=== PATIENT | male | born 1990 | race Two or more races ===

== ENCOUNTER 2022-04-02 04:20 | Emergency (ER) | payer MEDICAID ==
[~2022-04-02] VITALS: Ht 182.9 cm; Wt 55.0 kg
[2022-04-02 04:53] VITALS: BP 131/80
[2022-04-02] MEDS ORDERED: LORazepam 2MG/ML-1ML VIAL ONE (11:23)
[2022-04-02] MEDS ORDERED: ACET1CAP14 PO (23:50)
== END 2022-04-02 07:03 | disposition left against medical advice (07) ==
LOC: ER 04:20 → EDBD 04:20 → ER 07:03
DX: S86.911A Strain of unspecified muscle(s) and tendon(s) at lower leg level, right leg, initial encounter (principal); F12.90 Cannabis use, unspecified, uncomplicated; Z59.00 Homelessness unspecified; W18.39XA Other fall on same level, initial encounter; Y93.89 Activity, other specified; Y92.89 Other specified places as the place of occurrence of the external cause; Y99.8 Other external cause status
CPT/HCPCS: 73590; 99283; J2060

== ENCOUNTER 2022-04-02 18:29 | Emergency (ER) | payer MEDICAID ==
[~2022-04-02] VITALS: Ht 182.9 cm; Wt 54.0 kg
[2022-04-02] MEDS ORDERED: ASPirin 81 mg TAB PO ONE (19:00)
[2022-04-02] MEDS ORDERED: ACETAMINOPHEN 325 MG TAB PO ONE (19:30)
[2022-04-02 19:45] LABS: Basophils # (auto) 0 10 ^3/uL (0-0.2); Basophils % (auto) 0.3 % (0.0-2.0); Eosinophils # (auto) 0.3 10 ^3/uL (0-0.8); Eosinophils % (auto) 2.5 % (0.0-7.0); Hematocrit 42.5 % (41.0-53.0); Hemoglobin 14.2 g/dL (13.5-17.5); Lymphocytes # (auto) 1.9 10 ^3/uL (0.4-5.4); Lymphocytes % (auto) 18.6 % (10.0-50.0); Mean Corpuscular Hemoglobin 29.4 pg (28.0-32.0); Mean Corpuscular Hgb Conc. 33.5 g/dL (32.0-36.0); Mean Corpuscular Volume 87.8 fL (80.0-100.0); Monocytes # (auto) 0.7 10 ^3/uL (0-1.3); Neutrophils # (auto) 7.2 10 ^3/uL (1.6-8.6); Neutrophils % (auto) 71.6 % (37.0-80.0); Red Blood Cells 4.83 10^6/uL (4.5-5.90); Red Cell Distribution Width 15.4 % (11.8-14.3); White Blood Cell 10.1 10^3/uL (4.4-10.8)
[2022-04-02 19:51] LABS: INR 1.06 (0.9-1.15); Partial Thromboplastin Time 33.3 sec (24.6-33.4)
[2022-04-02 20:03] LABS: Albumin 4.2 g/dL (3.4-5.0); Magnesium 2.9 mg/dL (1.6-2.6)
[2022-04-02 20:06] LABS: BUN/Creatinine Ratio 24.5; Bilirubin, Total 0.2 mg/dL (0.2-1.0); Total Protein 7.6 g/dL (6.4-8.2)
[2022-04-02 20:22] VITALS: BP 115/64
[2022-04-02] MEDS ORDERED: ACET1CAP14 PO (23:50)
== END 2022-04-03 01:06 | disposition home or self-care (01) ==
LOC: ER 18:29 → EDBD 18:29 → ER 04-03 01:06
DX: S86.911A Strain of unspecified muscle(s) and tendon(s) at lower leg level, right leg, initial encounter (principal); S46.911A Strain of unspecified muscle, fascia and tendon at shoulder and upper arm level, right arm, initial encounter; Z79.899 Other long term (current) drug therapy; W05.1XXA Fall from non-moving nonmotorized scooter, initial encounter; Y93.89 Activity, other specified; Y92.89 Other specified places as the place of occurrence of the external cause; Y99.8 Other external cause status
CPT/HCPCS: 36415; 71045; 73030; 73080; 73090; 73130; 73562; 80053; 83690; 83735; 83880; 84484; 85025; 85379; 85610; 85730; 93005